=== PATIENT | female | born 1970 | race African-American/Black ===

== ENCOUNTER 2017-01-04 21:26 | Emergency (ER) | payer BC ==
--- NOTE | ~2017-01-04 | CT2 ---
[facility] A Service of [facility] RADIOLOGY TEXT RESULTS PATIENT: TOPHER ZAIDI LOCATION: [facility] : 66 UNIT #: [id number] AGE: [address]: Farhad Velazquez MD SEX: F ORDER DR: [id number] [facility] [address] [place], [place] [address] [id number] E MR#: [id number] Acc #: [id number] NAME: TOPHER ZAIDI. : 1970 SEX: F STUDY DATE/TIME: 01/05/2017 01:14 UNIT: [facility] ROOM: STUDY DESCRIPTION: CT Abd and Pelv W Cont Attending Physician: Farhad Velazquez M.D. Ordering Physician: Farhad Velazquez M.D. Primary Care Physician: Sam Pascual M.D. MEDICAL IMAGING REPORT This report is preliminary unless electronic signature is present EXAM Abdomen and pelvis CT 01/05 at 01:14 INDICATION Headache, chills, abdominal pain that started today. Weakness and nausea as well. TECHNIQUE Axial images were obtained through the abdomen and pelvis following IV contrast administration. Multiplanar reformats were obtained. No comparison abdomen or pelvis CT. This CT examination was performed with one or more of the following radiation dose reduction techniques: automatic exposure control, adjustment of mA and/or kV according to patient size, and iterative reconstruction. FINDINGS ABDOMEN: Lung bases are clear. Gallbladder contracted. No biliary obstruction. Solid organs are normal. No free fluid or adenopathy is seen. The unopacified GI tract is normal. PELVIS: Urinary bladder is normal. The appendix is normal. The remainder of the unopacified GI tract is normal as well. No free fluid. Uterus is mildly enlarged but no focal lesions are identified. IMPRESSION 1. No acute findings in the abdomen or pelvis. 2. Normal unopacified GI tract, including the appendix. 3. Mildly enlarged uterus that is otherwise unremarkable. No focal leiomyomata are identified. Dictated by... Jorge Moser Jr., M.D. [facility] A Service of [facility] RADIOLOGY TEXT RESULTS PATIENT: TOPHER ZAIDI LOCATION: [facility] : [birth year] UNIT #: [id number] AGE: [address]: Farhad Velazquez MD SEX: F ORDER DR: THIS IS AN ELECTRONICALLY VERIFIED REPORT Jorge Moser Jr., M.D. at 01/06/2017 4:23 AM BROWN/sanket TD: 01/05/2017 07:51 JOB #: [id number] MEDICAL IMAGING REPORT Page 1 of 1 COPY
--- NOTE | ~2017-01-04 | CT71 ---
[facility] A Service of [facility] RADIOLOGY TEXT RESULTS PATIENT: TOPHER ZAIDI LOCATION: [facility] : 66 UNIT #: [id number] AGE: [address]: Farhad Velazquez MD SEX: F ORDER DR: [id number] [facility] [address] [place], [place] [address] [id number] E MR#: [id number] Acc #: [id number] NAME: TOPHER ZAIDI. : 1970 SEX: F STUDY DATE/TIME: 01/05/2017 01:12 UNIT: [facility] ROOM: STUDY DESCRIPTION: CT Head Wo Contrast Attending Physician: Farhad Velazquez M.D. Ordering Physician: Farhad Velazquez M.D. Primary Care Physician: Sam Pascual M.D. MEDICAL IMAGING REPORT This report is preliminary unless electronic signature is present EXAM Head CT on 01/29/2016 at 01:12. INDICATIONS Headache, chills with weakness and nausea that started today. COMPARISON 06/14/2009. TECHNIQUE This CT exam was performed with one or more of the following radiation dose reduction techniques: Automatic exposure control, adjustment of mA and/or kV according to patient size, and iterative reconstruction. FINDINGS Axial images were obtained from the base to the vertex without contrast. There is abnormal low attenuation change in the left frontal white matter. Findings are suspicious for an underlying mass potentially measuring about 1.9 cm in diameter. Followup with pre and postcontrast brain MRI is recommended. This mass is essentially isointense to [place] matter and could reflect a meningioma. Ventricular size and configuration are normal. There is no evidence of acute hemorrhage. The bones are normal. IMPRESSION 1. There is left frontal edema in the white matter that appears to be secondary to a isodense mass measuring about 1.9 cm. This may simply reflect a meningioma. However, the lesion is incompletely evaluated. Followup with pre and postcontrast brain MRI is recommended. 2. The remainder of head CT is negative. Dictated by... Jorge Moser Jr., M.D. [facility] A Service of [facility] RADIOLOGY TEXT RESULTS PATIENT: TOPHER ZAIDI LOCATION: [facility] : 66 UNIT #: [id number] AGE: [address]: Farhad Velazquez MD SEX: F ORDER DR: THIS IS AN ELECTRONICALLY VERIFIED REPORT Jorge Moser Jr., M.D. at 01/06/2017 4:22 AM BROWN/anju TD: 01/05/2017 07:36 JOB #: [id number] MEDICAL IMAGING REPORT Page 1 of 1 COPY
[~2017-01-04 21:26] MED LIST: FLEXERIL PO; LORTAB 7.5-5001 TAB PO
[2017-01-04 23:35] LABS: URINE SOURCE CLEAN CATCH
[2017-01-04 23:38] LABS: URINE APPEARANCE CLEAR; URINE BILIRUBIN NEG (NEG); URINE BLOOD 2+ (NEG); URINE COLOR YELLOW; URINE GLUCOSE NEG (NEG); URINE KETONE NEG (NEG); URINE LEUKOCYTE ESTERASE NEG (NEG); URINE NITRATE NEG (NEG); URINE PH 5.5 (5-8); URINE PROTEIN NEG (NEG); URINE SPECIFIC GRAVITY 1.015 (1.003-1.035); URINE UROBILINOGEN 0.2 MG/DL (NEG)
[2017-01-04 23:41] LABS: U HYALINE CASTS AUWI 0-2 /[LPF]; URINE BACTERIA AUWI NEG (NEGATIVE); URINE SQUAMOUS EPITHELIAL CELL NONE SEEN /[HPF]; UWBCS1 AUWI 0-2 (0-5)
[2017-01-04 23:45] LABS: BASOPHIL# 0.1 X10e3 (0-0.3); BASOPHIL% 0.4 % (0-2.5); EOSINOPHIL% 0.3 % (0.0-7.0); HEMATOCRIT 39.4 % (35.0-45.0); HEMOGLOBIN 13.1 gm/dL (12.0-16.0); LYMPHOCYTE# 1.5 X10e3 (1.0-3.5); LYMPHOCYTE% 9.2 % (17.0-45.0); MEAN CELL VOLUME 90.2 FL (83-96); MEAN CORPUSCULAR HEMOGLOBIN 30.1 PG (28-34); MEAN CORPUSCULAR HGB CONC 33.3 g/dL (30-36); MEAN PLATELET VOLUME 8.2 FL (6.5-11.5); MONOCYTE# 1.2 X10e3 (0-1.0); MONOCYTE% 7.5 % (3.0-12.0); NEUTROPHIL# 13.6 X10e3 (1.5-7.1); NEUTROPHIL% 82.6 % (40-75); PLATELET COUNT 308 X10e3 (140-420); RED BLOOD COUNT 4.36 X10e (3.90-5.30); RED CELL DISTRIBUTION WIDTH 13.5 % (11.0-15.5); WHITE BLOOD COUNT 16.4 X10e3 (4.0-10.5)
[2017-01-04 23:48] LABS: DIFF IND YES
[2017-01-04 23:49] LABS: CULTURE INDICATED? NO
[2017-01-04 23:58] LABS: PLATELET ESTIMATE NORMAL (NORMAL)
[2017-01-04 23:59] LABS: ANISOCYTOSIS SL
[2017-01-05 00:09] LABS: ALBUMIN SERUM 4.4 g/dL (3.5-5.0); ALKALINE PHOSPHATASE 42 U/L (32-92); ALT (SGPT) 22 U/L (10-40); AST (SGOT) 29 U/L (10-42); BILIRUBIN,TOTAL 0.5 mg/dL (0.2-2.0); BLOOD UREA NITROGEN 12 mg/dL (9-23); CARBON DIOXIDE 26 mmol/L (22-31); CHLORIDE 101 mmol/L (100-111); CREATININE SERUM 1.2 mg/dL (0.6-1.4); GLOM FILT RATE Estimated 61.9 mL/min (>60); GLUCOSE FASTING 100 mg/dL (70-110); LIPASE 33 U/L (22-51); POTASSIUM 3.7 mmol/L (3.5-5.1); PROTEIN TOTAL SERUM 8.1 g/dL (6.0-8.3); SODIUM 135 mmol/L (135-145)
[2017-01-05 00:11] LABS: BILIRUBIN, DIRECT <0.1 mg/dL (0.0-0.2); BILIRUBIN,INDIRECT 0.4 mg/dL (0.0-0.9)
[2017-01-06 22:52] LABS: CHLAMYDIA TRACH Not Detected (Not Detected); N GONOR Not Detected (Not Detected)
== END 2017-01-05 05:28 ==
LOC: CED 21:26
PROVIDERS: Emergency Medicine
DX: R10.32 Left lower quadrant pain (principal); R51 Headache; G93.89 Other specified disorders of brain; I10 Essential (primary) hypertension; Z79.899 Other long term (current) drug therapy
CPT/HCPCS: 36415; 70450; 74177; 80048; 80076; 81003; 83690; 84703; 85025; 87491; 87591; 87808; 87905; 96361; 96374; 96375; 99284; J1885; J1953; J2405; Q9967